=== PATIENT | female | born 1980 | race Caucasian/White ===

== ENCOUNTER 2018-01-08 20:54 | Inpatient (IN) | payer OTHER ==
[~2018-01-08 20:54] MED LIST: ISOVUE-370 76%-LOCM 1 ML ONE
[2018-01-08] MEDS ORDERED: Ketorolac Tromethamine 30 MG/ML VIAL ONE (21:07)
[2018-01-08 21:14] LABS: #Basophils 0.1 thou/uL (0.0-0.2); #Eosinphils 0.2 thou/uL (0.0-0.7); #Lymphocytes 5.5 thou/uL (1.20-3.40); #Monocytes 0.7 thou/uL (0.11-0.59); #Neutrophils 8.4 thou/uL (1.40-6.50); %Basophils 0.9 % (0.0-1.0); %Eosinophils 1.2 % (0.0-10.0); %Lymphocytes 37.1 % (21.0-51.0); %Monocytes 4.4 % (0.0-10.0); %Neutrophils 56.4 % (42.0-75.0); Hemoglobin 14.2 g/dL (12.0-16.0); Mean Corpuscular HGB CONC 34.5 g/dL (32.0-36.0); Mean Corpuscular Hemoglobin 29.4 pg (27.0-31.0); Mean Corpuscular Volume 85.3 fl (81.0-99.0); Mean Platelet Volume 10.1 fL (7.4-10.4); Platelet Count 242 thou/uL (130-400); RBC Distribution Width 12.2 % (11.5-14.5); Red Blood Cell (RBC) Count 4.83 mill/uL (4.20-5.40); White Blood Cell (WBC) Count 14.9 thou/uL (4.8-10.8)
[2018-01-08 21:15] LABS: BHCG - Serum Negative (NEGATIVE); Pregs Control Background? CLEAR/WHITE (CLR/WHITE); Pregs Control Bar Appear? YES (CONTROL BAR)
[2018-01-08 21:25] LABS: ALT (SGPT) 54 U/L (8-55); AST (SGOT) 81 U/L (5-34); Albumin 3.9 g/dL (3.5-5.0); Alkaline Phosphatase 60 U/L (40-150); Anion Gap 13 mmol/L (10-20); BUN (Urea Nitrogen) 13 mg/dL (7.0-18.7); Bilirubin, Total 0.3 mg/dL (0.2-1.2); Calc. Creatinine Clearance 0 mL/min (70-130); Calcium 8.8 mg/dL (7.8-10.44); Carbon Dioxide 23 mmol/L (22-29); Chloride 107 mmol/L (98-107); Estimated GFR-MDRD 66; Globulin 2.9 g/dL (2.4-3.5); Glucose 139 mg/dL (70-105); Potassium 3.7 mmol/L (3.5-5.1); Protein, Total 6.8 g/dL (6.0-8.3); Sodium 139 mmol/L (136-145)
[2018-01-08] MEDS ORDERED: Fentanyl 100 MCG/2 ML VIAL ONE ×2 (21:29→23:35)
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
[2018-01-08] MEDS ORDERED: methylPREDNISolone Sod Succ/PF 125 MG/2 ML VIAL ONE (22:10)
[2018-01-08] MEDS ORDERED: diphenhydrAMINE 50 MG/ML VIAL ONE (22:10)
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
[2018-01-08] MEDS ORDERED: Famotidine 40 MG/4 ML VIAL SLOW IVP SCH (22:30)
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
[2018-01-09 00:35] LABS: Hemoglobin 12.7 g/dL (12.0-16.0)
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
[2018-01-09] MEDS ORDERED: Morphine 4 MG/ML VIAL SLOW IVP PRN ×2 (01:24→17:11)
[2018-01-09] MEDS ORDERED: Dextrose 5% in Water 1,000 ML IV PRN (01:24)
[2018-01-09] MEDS ORDERED: Dextrose 50% Abboject 50 ML SYRINGE SLOW IVP PRN (01:24)
[2018-01-09] MEDS ORDERED: Ondansetron HCl/PF 4 MG/2 ML Vial IVP PRN ×2 (01:24→13:10)
[2018-01-09] MEDS ORDERED: Bisacodyl 10 MG SUPP PR PRN (01:24)
[2018-01-09] MEDS ORDERED: hydrALAZINE 20 MG/ML VIAL SLOW IVP PRN (01:24)
[2018-01-09 02:01] VITALS: BMI 35.8
[2018-01-09 02:09] LABS: Hemoglobin 12.8 g/dL (12.0-16.0)
[2018-01-09] MEDS: Morphine 4 MG/ML VIAL SLOW IVP PRN ×3 (02:27→15:14)
[2018-01-09] MEDS: Sodium Chloride 0.9% 1,000 ML IV SCH ×3 (02:28→17:42)
[2018-01-09] MEDS: Acetaminophen 1,000 MG in Premix Bag 1 BAG IVPB SCH ×3 (03:11→15:13)
[2018-01-09 05:06] LABS: Bilirubin Negative (Negative); Blood, Urine Trace (Negative); Clarity CLEAR (Clear); Glucose, Urine (Dipstick) 250 mg/dL (Negative); Leukocyte Small (Negative); Nitrite Negative (Negative); Pregnancy Test - Urine (BHCG) Negative (Negative); Pregu Control Background? CLEAR/WHITE (CLR/WHITE); Pregu Control Bar Appear? YES (CONTROL BAR); Protein, Urine (Dipstick) Negative (Neg-Trace); Specific Gravity 1.038 (1.002-1.036); Specific Gravity, Urine 1.038 (1.002-1.036); pH, Urine 5.5 (5.0-9.0)
[2018-01-09 05:09] LABS: Bacteria/HPF None Seen HPF (None Seen); Hyaline Casts/LPF 0-3 HYALINE CAST LPF (0-3 Hyaline); Squamous Epithelial 0-3 HPF (0-3); WBC/HPF 21-50 HPF (0-3)
[2018-01-09 05:24] LABS: #Lymphocytes 0.6 thou/uL (1.20-3.40); #Monocytes 0.2 thou/uL (0.11-0.59); %Basophils 0.3 % (0.0-1.0); %Eosinophils 0.2 % (0.0-10.0); %Lymphocytes 5.4 % (21.0-51.0); %Monocytes 1.7 % (0.0-10.0); %Neutrophils 92.4 % (42.0-75.0); Mean Corpuscular HGB CONC 34.2 g/dL (32.0-36.0); Mean Corpuscular Hemoglobin 29.6 pg (27.0-31.0); Mean Corpuscular Volume 86.6 fl (81.0-99.0); Platelet Count 175 thou/uL (130-400); RBC Distribution Width 12.3 % (11.5-14.5); Red Blood Cell (RBC) Count 4.05 mill/uL (4.20-5.40); White Blood Cell (WBC) Count 10.8 thou/uL (4.8-10.8)
[2018-01-09 05:35] LABS: Anion Gap 11 mmol/L (10-20); BUN (Urea Nitrogen) 10 mg/dL (7.0-18.7); Calc. Creatinine Clearance 136 mL/min (70-130); Calcium 8.1 mg/dL (7.8-10.44); Carbon Dioxide 23 mmol/L (22-29); Chloride 107 mmol/L (98-107); Estimated GFR-MDRD 81; Glucose 195 mg/dL (70-105); Magnesium 1.9 mg/dL (1.6-2.6); Sodium 137 mmol/L (136-145)
[2018-01-09 05:51] LABS: Renal Epithelial None Seen HPF (0-3); Transitional Epithelial NONE SEEN HPF (0-3)
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
[2018-01-09] MEDS ORDERED: CEFAZOLIN/Water 2 GM/20 ML SYRINGE SLOW IVP SCH (07:45)
[2018-01-09] MEDS ORDERED: CEFAZOLIN/Water 2 GM/20 ML SYRINGE ONE (09:19)
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
[2018-01-09] MEDS: Senokot S 8.6-50 MG TAB PO SCH ×2 (10:12→20:46)
[2018-01-09] MEDS ORDERED: Midazolam HCl 2 mg/2 ml Vial ONE (10:12)
[2018-01-09] MEDS: Polyethylene Glycol 3350 17 GM Packet PO SCH (10:12)
[2018-01-09] MEDS: Famotidine 40 MG/4 ML VIAL SLOW IVP SCH ×2 (10:12→20:44)
[2018-01-09] MEDS ORDERED: Fentanyl 250 MCG/5 ML VIAL ONE (10:13)
[2018-01-09] MEDS ORDERED: PHENYLEPHRINE-NS 100 MCG/ML 10 ML SYRINGE ONE (12:59)
[2018-01-09] MEDS ORDERED: Lidocaine 1% PF 5 ML VIAL ONE (12:59)
[2018-01-09] MEDS ORDERED: Succinylcholine Chloride 20 MG/ML 10 ml SYRINGE FS ONE (12:59)
[2018-01-09] MEDS ORDERED: Dexamethasone 20 MG/5 ML VIAL ONE (12:59)
[2018-01-09] MEDS ORDERED: PROPOFOL 200 MG/20 ML VIAL ONE (12:59)
[2018-01-09] MEDS ORDERED: Glycopyrrolate 0.2 MG/ML 5 ML SYRINGE ONE (12:59)
[2018-01-09] MEDS ORDERED: Promethazine HCl 25 MG/ML VIAL SLOW IVP PRN (13:10)
[2018-01-09] MEDS ORDERED: Promethazine HCl 25 MG/ML VIAL IM PRN (13:10)
[2018-01-09] MEDS ORDERED: Fentanyl 100 MCG/2 ML VIAL ONE ×2 (13:15→13:53)
[2018-01-09 15:14] LABS: Hemoglobin 10.9 g/dL (12.0-16.0)
[2018-01-09] MEDS ORDERED: traMADol HCl 50 MG TAB PO PRN (17:09)
[2018-01-09] MEDS: Acetaminophen 500 MG TAB PO SCH ×2 (17:33→23:39)
[2018-01-09] MEDS: CEFAZOLIN/Water 2 GM/20 ML SYRINGE SLOW IVP SCH (17:34)
[2018-01-09] MEDS: Ketorolac Tromethamine 30 MG/ML VIAL IVP SCH ×2 (17:37→23:40)
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
[2018-01-09] MEDS: Gabapentin 300 MG CAP PO SCH (20:46)
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
[2018-01-10] MEDS: CEFAZOLIN/Water 2 GM/20 ML SYRINGE SLOW IVP SCH ×2 (01:44→11:02)
[2018-01-10] MEDS: Sodium Chloride 0.9% 1,000 ML IV SCH ×2 (03:27→13:47)
[2018-01-10] MEDS: Ketorolac Tromethamine 30 MG/ML VIAL IVP SCH ×4 (05:23→23:39)
[2018-01-10] MEDS: Acetaminophen 500 MG TAB PO SCH ×4 (05:23→23:39)
[2018-01-10 05:38] LABS: #Lymphocytes 1.1 thou/uL (1.20-3.40); #Monocytes 0.5 thou/uL (0.11-0.59); #Neutrophils 5.4 thou/uL (1.40-6.50); %Basophils 0.2 % (0.0-1.0); %Eosinophils 0.2 % (0.0-10.0); %Lymphocytes 15.9 % (21.0-51.0); %Monocytes 6.9 % (0.0-10.0); %Neutrophils 76.8 % (42.0-75.0); Hemoglobin 8.8 g/dL (12.0-16.0); Mean Corpuscular HGB CONC 33.4 g/dL (32.0-36.0); Mean Corpuscular Hemoglobin 29.2 pg (27.0-31.0); Mean Corpuscular Volume 87.6 fl (81.0-99.0); Platelet Count 156 thou/uL (130-400); RBC Distribution Width 12.4 % (11.5-14.5); Red Blood Cell (RBC) Count 2.99 mill/uL (4.20-5.40)
--- NOTE | 2018-01-10 06:48 | PRG ---
DATE OF SERVICE: 01/10/2018 I saw Cathryn Lucas in her bed this morning. Her CTSO has been applied, although it does not fit. Her chin is not in place. The device is not fitting well. She is unsure exactly how to get it on and o ff and readjust it. Thankfully, Ms. Lucas's neurological examination is quite stable. She has joint position sense, good strength and sensation all the way down to the toes. Unfortunately, the fit and positioning as well as the teaching for donning and doffing her brace were not absorbed well yesterday and the group that placed it will be called back to bedside today for re fitting, replacement and more teaching. Our office will make a followup appointment in 7-12 days for upright x-rays in her braces and as long as spinal alignment remains reasonable and the neurological function is normal then we will continue with conservative management for her thoracic fractures.
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
[2018-01-10] MEDS: Senokot S 8.6-50 MG TAB PO SCH ×2 (09:11→20:16)
[2018-01-10] MEDS: Gabapentin 300 MG CAP PO SCH ×2 (09:11→20:16)
[2018-01-10] MEDS: Polyethylene Glycol 3350 17 GM Packet PO SCH (09:11)
[2018-01-10] MEDS: Enoxaparin Sodium 30 MG/0.3 ML SYRINGE SC SCH ×2 (09:11→20:24)
[2018-01-10] MEDS: Citalopram 20 MG TAB PO SCH (09:11)
[2018-01-10] MEDS: traMADol HCl 50 MG TAB PO PRN (09:41)
[2018-01-10] MEDS: Famotidine 40 MG/4 ML VIAL SLOW IVP SCH (14:56)
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
[2018-01-10] MEDS: Famotidine 20 MG TAB PO SCH (20:16)
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
[2018-01-11 05:37] LABS: Anion Gap 9 mmol/L (10-20); BUN (Urea Nitrogen) 9 mg/dL (7.0-18.7); Calc. Creatinine Clearance 160 mL/min (70-130); Calcium 8.1 mg/dL (7.8-10.44); Carbon Dioxide 28 mmol/L (22-29); Chloride 106 mmol/L (98-107); Estimated GFR-MDRD Greater than 90; Glucose 111 mg/dL (70-105); Potassium 3.5 mmol/L (3.5-5.1); Sodium 139 mmol/L (136-145)
[2018-01-11 05:49] LABS: #Basophils 0.1 thou/uL (0.0-0.2); #Eosinphils 0.1 thou/uL (0.0-0.7); #Lymphocytes 1.7 thou/uL (1.20-3.40); #Monocytes 0.3 thou/uL (0.11-0.59); #Neutrophils 3.8 thou/uL (1.40-6.50); %Basophils 0.9 % (0.0-1.0); %Lymphocytes 28.9 % (21.0-51.0); %Monocytes 4.3 % (0.0-10.0); %Neutrophils 63.9 % (42.0-75.0); Hemoglobin 8.4 g/dL (12.0-16.0); Mean Corpuscular HGB CONC 33.9 g/dL (32.0-36.0); Mean Corpuscular Hemoglobin 29.7 pg (27.0-31.0); Mean Corpuscular Volume 87.7 fl (81.0-99.0); Mean Platelet Volume 9.5 fL (7.4-10.4); Platelet Count 142 thou/uL (130-400); RBC Distribution Width 12.4 % (11.5-14.5); Red Blood Cell (RBC) Count 2.84 mill/uL (4.20-5.40); White Blood Cell (WBC) Count 5.9 thou/uL (4.8-10.8)
[2018-01-11] MEDS: Acetaminophen 500 MG TAB PO SCH (05:57)
[2018-01-11] MEDS: Ketorolac Tromethamine 30 MG/ML VIAL IVP SCH ×4 (05:57→23:26)
[2018-01-11] MEDS: traMADol HCl 50 MG TAB PO PRN (06:29)
[2018-01-11] MEDS ORDERED: Potassium Phosphate 9 MMOL, Admixture Fee 1 EACH in Sodium Chloride 0.9% 100 ML IVPB SCH (08:00)
[2018-01-11] MEDS: Enoxaparin Sodium 30 MG/0.3 ML SYRINGE SC SCH ×2 (10:23→20:31)
[2018-01-11] MEDS: Citalopram 20 MG TAB PO SCH (10:23)
[2018-01-11] MEDS: Famotidine 20 MG TAB PO SCH ×2 (10:23→20:30)
[2018-01-11] MEDS: Gabapentin 300 MG CAP PO SCH ×2 (10:24→20:30)
[2018-01-11] MEDS: Senokot S 8.6-50 MG TAB PO SCH ×2 (10:24→20:30)
[2018-01-11] MEDS: Polyethylene Glycol 3350 17 GM Packet PO SCH (10:25)
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
[2018-01-11] MEDS: Acetaminophen 325 MG TAB PO SCH ×3 (12:04→23:26)
[2018-01-11] MEDS: traMADol HCl 50 MG TAB PO SCH ×3 (12:05→23:26)
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
[2018-01-11] MEDS: Cyclobenzaprine 10 MG TAB PO SCH ×2 (14:57→17:48)
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
[2018-01-11] MEDS: HYDROcodone/Acetaminophen 10/325 mg Tablet PO PRN (20:39)
[2018-01-12] MEDS: traMADol HCl 50 MG TAB PO SCH ×3 (05:59→17:20)
[2018-01-12] MEDS: Acetaminophen 325 MG TAB PO SCH ×3 (05:59→17:16)
[2018-01-12] MEDS: Ketorolac Tromethamine 30 MG/ML VIAL IVP SCH ×2 (05:59→14:32)
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
[2018-01-12 08:16] LABS: #Eosinphils 0.2 thou/uL (0.0-0.7); #Lymphocytes 1.3 thou/uL (1.20-3.40); #Monocytes 0.3 thou/uL (0.11-0.59); #Neutrophils 3.6 thou/uL (1.40-6.50); %Basophils 0.6 % (0.0-1.0); %Eosinophils 3.3 % (0.0-10.0); %Lymphocytes 23.8 % (21.0-51.0); %Monocytes 5.1 % (0.0-10.0); %Neutrophils 67.2 % (42.0-75.0); Hemoglobin 8.7 g/dL (12.0-16.0); Mean Corpuscular HGB CONC 34.5 g/dL (32.0-36.0); Mean Corpuscular Volume 86.9 fl (81.0-99.0); Mean Platelet Volume 8.9 fL (7.4-10.4); Platelet Count 173 thou/uL (130-400); RBC Distribution Width 12.2 % (11.5-14.5); Red Blood Cell (RBC) Count 2.91 mill/uL (4.20-5.40); White Blood Cell (WBC) Count 5.4 thou/uL (4.8-10.8)
[2018-01-12] MEDS: Polyethylene Glycol 3350 17 GM Packet PO SCH (08:24)
[2018-01-12] MEDS: Citalopram 20 MG TAB PO SCH (08:24)
[2018-01-12] MEDS: Senokot S 8.6-50 MG TAB PO SCH ×2 (08:24→21:12)
[2018-01-12] MEDS: Enoxaparin Sodium 30 MG/0.3 ML SYRINGE SC SCH ×2 (08:24→21:12)
[2018-01-12] MEDS: Ferrous Sulfate 325 MG TAB PO SCH ×2 (08:24→17:21)
[2018-01-12] MEDS: HYDROcodone/Acetaminophen 10/325 mg Tablet PO PRN ×2 (08:24→13:57)
[2018-01-12] MEDS: Gabapentin 300 MG CAP PO SCH ×3 (08:24→21:12)
[2018-01-12] MEDS: Famotidine 20 MG TAB PO SCH ×2 (08:24→21:11)
[2018-01-12] MEDS: Ascorbic Acid 500 mg Chewable Tablet PO SCH ×2 (08:24→21:11)
[2018-01-12] MEDS: guaiFENesin ER 600 MG TAB PO SCH ×2 (08:24→21:12)
[2018-01-12 08:36] LABS: Anion Gap 12 mmol/L (10-20); BUN (Urea Nitrogen) 10 mg/dL (7.0-18.7); Calc. Creatinine Clearance 162 mL/min (70-130); Calcium 8.5 mg/dL (7.8-10.44); Carbon Dioxide 26 mmol/L (22-29); Chloride 103 mmol/L (98-107); Estimated GFR-MDRD Greater than 90; Glucose 109 mg/dL (70-105); Phosphorus 3.5 mg/dL (2.3-4.7); Potassium 3.7 mmol/L (3.5-5.1); Sodium 137 mmol/L (136-145)
[2018-01-12] MEDS: Ibuprofen 800 MG TAB PO SCH ×2 (13:56→21:12)
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
[2018-01-12] MEDS: HYDROcodone/Acetaminophen 10/325 mg Tablet PO SCH ×2 (17:19→21:12)
[2018-01-12] MEDS: Cyclobenzaprine 10 MG TAB PO PRN (21:12)
[2018-01-13] MEDS: Acetaminophen 325 MG TAB PO SCH ×5 (00:13→23:47)
[2018-01-13] MEDS: traMADol HCl 50 MG TAB PO SCH ×5 (00:14→23:50)
[2018-01-13] MEDS: HYDROcodone/Acetaminophen 10/325 mg Tablet PO SCH ×6 (00:37→20:36)
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
[2018-01-13] MEDS: Ibuprofen 800 MG TAB PO SCH ×3 (05:52→20:36)
[2018-01-13] MEDS: Citalopram 20 MG TAB PO SCH (08:51)
[2018-01-13] MEDS: Ferrous Sulfate 325 MG TAB PO SCH ×2 (08:52→17:07)
[2018-01-13] MEDS: Gabapentin 300 MG CAP PO SCH ×3 (08:52→20:35)
[2018-01-13] MEDS: Ascorbic Acid 500 mg Chewable Tablet PO SCH ×2 (08:52→20:36)
[2018-01-13] MEDS: guaiFENesin ER 600 MG TAB PO SCH ×2 (08:52→20:36)
[2018-01-13] MEDS: Enoxaparin Sodium 30 MG/0.3 ML SYRINGE SC SCH ×2 (08:53→20:36)
[2018-01-13] MEDS: Senokot S 8.6-50 MG TAB PO SCH ×2 (08:53→20:36)
[2018-01-13] MEDS: Famotidine 20 MG TAB PO SCH ×2 (08:53→20:35)
[2018-01-13] MEDS: Polyethylene Glycol 3350 17 GM Packet PO SCH (09:06)
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
[2018-01-13] MEDS: HYDROcodone/Acetaminophen 10/325 mg Tablet PO PRN (14:31)
[2018-01-14] MEDS: HYDROcodone/Acetaminophen 10/325 mg Tablet PO SCH ×6 (00:44→21:50)
[2018-01-14] MEDS: Ibuprofen 800 MG TAB PO SCH ×3 (05:29→21:51)
[2018-01-14] MEDS: Acetaminophen 325 MG TAB PO SCH ×3 (05:31→17:28)
[2018-01-14] MEDS: traMADol HCl 50 MG TAB PO SCH ×3 (05:31→17:34)
[2018-01-14] MEDS: Citalopram 20 MG TAB PO SCH (08:31)
[2018-01-14] MEDS: Ascorbic Acid 500 mg Chewable Tablet PO SCH ×2 (08:31→21:52)
[2018-01-14] MEDS: Famotidine 20 MG TAB PO SCH ×2 (08:31→21:51)
[2018-01-14] MEDS: guaiFENesin ER 600 MG TAB PO SCH ×2 (08:31→21:51)
[2018-01-14] MEDS: Enoxaparin Sodium 30 MG/0.3 ML SYRINGE SC SCH ×2 (08:31→21:51)
[2018-01-14] MEDS: Gabapentin 300 MG CAP PO SCH ×3 (08:31→21:51)
[2018-01-14] MEDS: Senokot S 8.6-50 MG TAB PO SCH ×2 (08:31→21:51)
[2018-01-14] MEDS: Ferrous Sulfate 325 MG TAB PO SCH ×2 (08:31→17:28)
[2018-01-14] MEDS: Polyethylene Glycol 3350 17 GM Packet PO SCH (08:32)
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
--- NOTE | 2018-01-14 13:21 | RAD ---
LEFT WRIST RADIOGRAPHS 2 VIEWS: DATE: 01/14/18. PROVIDED CLINICAL HISTORY: Distal radial fracture. FINDINGS: Comparison is made with the study dated 01/08/18. Comminuted intraarticular distal radial fracture is redemonstrated. Overlying splenic material is now in place. No additional fracture is evident. IMPRESSION: As above. POS: [facility]
[2018-01-14] MEDS: Cyclobenzaprine 10 MG TAB PO PRN (21:52)
[2018-01-15] MEDS: Acetaminophen 325 MG TAB PO SCH ×2 (00:03→05:49)
[2018-01-15] MEDS: traMADol HCl 50 MG TAB PO SCH ×2 (00:05→08:02)
[2018-01-15] MEDS: HYDROcodone/Acetaminophen 10/325 mg Tablet PO PRN ×2 (01:57→14:12)
[2018-01-15] MEDS: HYDROcodone/Acetaminophen 10/325 mg Tablet PO SCH ×4 (05:49→23:59)
[2018-01-15] MEDS: Ibuprofen 800 MG TAB PO SCH ×3 (07:43→21:52)
[2018-01-15] MEDS ORDERED: HYDROcodone/Acetaminophen 10/325 mg Tablet PO SCH ×2 (09:00→16:30)
[2018-01-15] MEDS: Enoxaparin Sodium 30 MG/0.3 ML SYRINGE SC SCH ×2 (09:25→20:06)
[2018-01-15] MEDS: Gabapentin 300 MG CAP PO SCH ×3 (09:25→20:07)
[2018-01-15] MEDS: Famotidine 20 MG TAB PO SCH ×2 (09:25→20:06)
[2018-01-15] MEDS: Ferrous Sulfate 325 MG TAB PO SCH ×2 (09:25→16:55)
[2018-01-15] MEDS: Ascorbic Acid 500 mg Chewable Tablet PO SCH ×2 (09:25→20:06)
[2018-01-15] MEDS: Citalopram 20 MG TAB PO SCH (09:25)
[2018-01-15] MEDS: guaiFENesin ER 600 MG TAB PO SCH ×2 (09:25→20:07)
[2018-01-15] MEDS: Polyethylene Glycol 3350 17 GM Packet PO SCH (09:45)
[2018-01-15] MEDS: Senokot S 8.6-50 MG TAB PO SCH ×2 (09:45→20:08)
[2018-01-15] MEDS ORDERED: traMADol HCl 50 MG TAB PO SCH (12:00)
[2018-01-15] MEDS ORDERED: Acetaminophen 325 MG TAB PO SCH (12:00)
[2018-01-16] MEDS: HYDROcodone/Acetaminophen 10/325 mg Tablet PO SCH ×5 (04:01→21:08)
[2018-01-16] MEDS: Ibuprofen 800 MG TAB PO SCH ×3 (05:35→21:07)
[2018-01-16] MEDS: Gabapentin 300 MG CAP PO SCH ×3 (09:18→21:07)
[2018-01-16] MEDS: Ferrous Sulfate 325 MG TAB PO SCH ×2 (09:18→17:25)
[2018-01-16] MEDS: guaiFENesin ER 600 MG TAB PO SCH ×2 (09:18→21:07)
[2018-01-16] MEDS: Ascorbic Acid 500 mg Chewable Tablet PO SCH ×2 (09:18→21:07)
[2018-01-16] MEDS: Citalopram 20 MG TAB PO SCH (09:18)
[2018-01-16] MEDS: Famotidine 20 MG TAB PO SCH ×2 (09:18→21:07)
[2018-01-16] MEDS: Enoxaparin Sodium 30 MG/0.3 ML SYRINGE SC SCH ×2 (09:19→21:07)
[2018-01-16] MEDS: Polyethylene Glycol 3350 17 GM Packet PO SCH (11:23)
[2018-01-16] MEDS: Senokot S 8.6-50 MG TAB PO SCH ×2 (11:23→21:08)
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
[2018-01-16] MEDS: HYDROcodone/Acetaminophen 10/325 mg Tablet PO PRN (14:20)
[2018-01-16] MEDS: Cyclobenzaprine 10 MG TAB PO PRN (17:27)
[2018-01-17] MEDS: HYDROcodone/Acetaminophen 10/325 mg Tablet PO SCH ×5 (01:05→17:20)
[2018-01-17] MEDS: Cyclobenzaprine 10 MG TAB PO PRN (02:45)
[2018-01-17] MEDS: Ibuprofen 800 MG TAB PO SCH ×2 (05:07→13:35)
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
[2018-01-17] MEDS: Polyethylene Glycol 3350 17 GM Packet PO SCH (09:32)
[2018-01-17] MEDS: Famotidine 20 MG TAB PO SCH (09:33)
[2018-01-17] MEDS: Gabapentin 300 MG CAP PO SCH ×2 (09:34→17:19)
[2018-01-17] MEDS: Ferrous Sulfate 325 MG TAB PO SCH ×2 (09:34→17:19)
[2018-01-17] MEDS: Senokot S 8.6-50 MG TAB PO SCH (09:34)
[2018-01-17] MEDS: guaiFENesin ER 600 MG TAB PO SCH (09:35)
[2018-01-17] MEDS: Citalopram 20 MG TAB PO SCH (09:36)
[2018-01-17] MEDS: Ascorbic Acid 500 mg Chewable Tablet PO SCH (09:37)
[2018-01-17] MEDS: Enoxaparin Sodium 30 MG/0.3 ML SYRINGE SC SCH (09:37)
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
[2018-01-17 15:12] VITALS: BP 128/62; TEMP 97.7
[2018-01-17] MEDS: HYDROcodone/Acetaminophen 10/325 mg Tablet PO PRN (18:37)
== END 2018-01-17 19:32 | DRG 481 ==
LOC: ERS 20:54 → SURG A 01-09 00:13
PROVIDERS: ADMIT Specialist; ATTEND Specialist
PROC: 0QS706Z Reposition Left Upper Femur with Intramedullary Internal Fixation Device, Open Approach (ICD-10-PCS; principal; 2018-01-11)
DX: S72.142A Displaced intertrochanteric fracture of left femur, initial encounter for closed fracture (principal); S22.43XA Multiple fractures of ribs, bilateral, initial encounter for closed fracture; S22.029A Unspecified fracture of second thoracic vertebra, initial encounter for closed fracture; S22.059A Unspecified fracture of T5-T6 vertebra, initial encounter for closed fracture; S22.089A Unspecified fracture of T11-T12 vertebra, initial encounter for closed fracture; S22.039A Unspecified fracture of third thoracic vertebra, initial encounter for closed fracture; S22.049A Unspecified fracture of fourth thoracic vertebra, initial encounter for closed fracture; S52.572A Other intraarticular fracture of lower end of left radius, initial encounter for closed fracture; S42.022A Displaced fracture of shaft of left clavicle, initial encounter for closed fracture; G89.11 Acute pain due to trauma; R33.9 Retention of urine, unspecified; V28.1XXA Motorcycle passenger injured in noncollision transport accident in nontraffic accident, initial encounter; Z88.5 Allergy status to narcotic agent; Z88.8 Allergy status to other drugs, medicaments and biological substances
CPT/HCPCS: 29125; 36415; 51702; 70450; 71045; 71275; 72040; 72072; 72125; 72170; 74176; 76001; 80048; 80053; 81003; 81015; 81025; 83735; 84100; 84703; 85014; 85018; 85025; 86850; 86900; 86901; 93005; 96361; 96374; 96375; 96376; C1713; C1769; G0390; G8978-GP-CN; G8979-GP-CK; G8987-GO-CM; G8988-GO-CK; J0131; J1100; J1200; J1650; J1885; J2001; J2250; J2270; J2704; J2930; J3010; J7050; L0200; L0639

== ENCOUNTER 2018-02-14 10:39 | Outpatient (CLI) | payer OTHER ==
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
== END 2018-02-14 10:40 | disposition home or self-care (01) ==
LOC: TBSIIMAG 10:39
PROVIDERS: ATTEND Neurological Surgery
DX: S22.059A Unspecified fracture of T5-T6 vertebra, initial encounter for closed fracture (principal); M40.204 Unspecified kyphosis, thoracic region
CPT/HCPCS: 72072

== ENCOUNTER 2018-03-14 12:41 | Outpatient (CLI) | payer OTHER ==
--- NOTE | 2018-03-14 14:52 | RAD ---
FRONTAL AND LATERAL IMAGING OF THORACIC SPINE: Date: 03/14/18 COMPARISON: 02/14/18. HISTORY: Evaluate thoracic spine fracture. FINDINGS: Prior imaging has demonstrated a compression fracture of the T5 vertebral body. On today's exam, the anterior wedge compression fracture of the T5 vertebral body is again demonstrated. Secondary to posi tioning, assessment is somewhat limited. The degree of vertebral body height loss is estimated in the 40% range. There is no anterolisthesis or retrolisthesis. There is mild superior end plate irregularity at T12, unchanged when compared to prior imaging. No ne w fracture is apparent. There is a distracted mid shaft left clavicle fracture. IMPRESSION: Anterior wedge compression fracture of T5. No interval change. POS: [facility]
== END 2018-03-14 12:42 | disposition home or self-care (01) ==
LOC: TBSIIMAG 12:41
PROVIDERS: ATTEND Neurological Surgery
DX: S22.008A Other fracture of unspecified thoracic vertebra, initial encounter for closed fracture (principal); S22.050A Wedge compression fracture of T5-T6 vertebra, initial encounter for closed fracture
CPT/HCPCS: 72072

== ENCOUNTER 2018-05-18 16:25 | Outpatient (CLI) | payer OTHER, BC | END 2018-05-18 16:26 | disposition home or self-care (01) | LOC: BICCT 16:25 | PROVIDERS: ATTEND Physician Assistant Surgical | DX: S72.145K Nondisplaced intertrochanteric fracture of left femur, subsequent encounter for closed fracture with nonunion (principal) ==

== ENCOUNTER 2018-06-07 11:15 | Inpatient (IN) | payer BC, OTHER ==
[2018-06-06 11:59] VITALS: BMI 32.9
[~2018-06-07 11:15] MED LIST changes: +Bupivacaine HCl 0.5%/Epinephrine 1:200,000/PF 30 ml Vial ONE; +Dexamethasone 20 MG/5 ML VIAL ONE; -ISOVUE-370 76%-LOCM 1 ML ONE; +Ketorolac Tromethamine 30 MG/ML VIAL ONE; +Ondansetron HCl/PF 4 MG/2 ML Vial ONE; +PROPOFOL 200 MG/20 ML VIAL ONE; +ePHEDrine/0.9% NaCl/PF SYRINGE 50 mg/10 ml ONE
[2018-06-07] MEDS ORDERED: Fentanyl 100 MCG/2 ML VIAL ONE ×5 (12:36→16:06)
[2018-06-07] MEDS ORDERED: Dexamethasone 4 mg/ml Vial ONE (12:36)
[2018-06-07] MEDS ORDERED: Midazolam HCl 2 mg/2 ml Vial ONE (12:36)
[2018-06-07] MEDS ORDERED: Lidocaine 1% (PF) 30 ML VIAL ONE (12:36)
[2018-06-07] MEDS ORDERED: CEFAZOLIN/Water 2 GM/20 ML SYRINGE ONE (12:48)
[2018-06-07] MEDS ORDERED: Promethazine HCl 25 MG/ML VIAL IM PRN (14:42)
[2018-06-07] MEDS ORDERED: Promethazine HCl 25 MG/ML VIAL SLOW IVP PRN (14:42)
[2018-06-07] MEDS ORDERED: Ketorolac Tromethamine 30 MG/ML VIAL IVP PRN (14:42)
[2018-06-07] MEDS ORDERED: Ondansetron HCl/PF 4 MG/2 ML Vial IVP PRN (14:42)
[2018-06-07] MEDS ORDERED: HYDROmorphone 2 MG/ML VIAL SLOW IVP PRN (14:42)
[2018-06-07] MEDS ORDERED: HYDROmorphone 2 MG/ML VIAL ONE ×2 (14:47→16:07)
[2018-06-07] MEDS ORDERED: HYDROcodone/Acetaminophen 10/325 mg Tablet PO PRN (14:50)
[2018-06-07] MEDS ORDERED: Ondansetron HCl/PF 4 MG/2 ML Vial IV PRN (14:50)
[2018-06-07] MEDS ORDERED: Communication Order-Pharmacy FS PRN (15:00)
--- NOTE | 2018-06-07 15:22 | RAD ---
LEFT FEMUR 2 VIEWS: Date: 06/07/18 HISTORY: Intraoperative film. FINDINGS: The film of the femur only includes the knee region. It shows the distal end of an intramedullary osiris in the distal femoral shaft. IMPRESSION: Distal end of intramedullary osiris is seen in the distal femoral shaft. POS: [facility]
[2018-06-07] MEDS ORDERED: TETANUS AND DIPHTHERIA TOX/PF 0.5 ML DISP.SYRIN IM SCH (16:00)
[2018-06-07] MEDS: HYDROcodone/Acetaminophen 10/325 mg Tablet PO PRN ×2 (18:55→23:03)
[2018-06-07] MEDS: CEFAZOLIN/Water 2 GM/20 ML SYRINGE SLOW IVP SCH (21:18)
[2018-06-07] MEDS: traMADol HCl 50 MG TAB PO PRN (21:18)
[2018-06-07] MEDS: Citalopram 20 MG TAB PO SCH (21:18)
[2018-06-07] MEDS: Aspirin 81 mg Enteric Coated Tablet PO SCH (21:18)
[2018-06-08] MEDS ORDERED: Calcium Carbonate 500 MG ChewTAB PO PRN (02:04)
[2018-06-08] MEDS: CEFAZOLIN/Water 2 GM/20 ML SYRINGE SLOW IVP SCH ×2 (05:21→15:07)
[2018-06-08] MEDS: HYDROcodone/Acetaminophen 10/325 mg Tablet PO PRN ×3 (05:24→20:30)
[2018-06-08 05:35] LABS: #Lymphocytes 0.9 thou/uL (1.20-3.40); #Monocytes 0.5 thou/uL (0.11-0.59); #Neutrophils 10.9 thou/uL (1.40-6.50); %Basophils 0.1 % (0.0-1.0); %Lymphocytes 7.7 % (21.0-51.0); %Monocytes 3.7 % (0.0-10.0); %Neutrophils 88.5 % (42.0-75.0); Hemoglobin 11.7 g/dL (12.0-16.0); Mean Corpuscular HGB CONC 33.3 g/dL (32.0-36.0); Mean Corpuscular Hemoglobin 28.8 pg (27.0-31.0); Mean Corpuscular Volume 86.3 fL (78.0-98.0); Mean Platelet Volume 10.6 fL (7.4-10.4); Platelet Count 216 thou/uL (130-400); RBC Distribution Width 13.7 % (11.5-14.5); Red Blood Cell (RBC) Count 4.07 mill/uL (4.20-5.40); White Blood Cell (WBC) Count 12.3 thou/uL (4.8-10.8)
[2018-06-08] MEDS: Aspirin 81 mg Enteric Coated Tablet PO SCH ×2 (08:34→20:30)
[2018-06-08] MEDS ORDERED: diphenhydrAMINE 25 MG CAP PO PRN (09:53)
[2018-06-08 16:15] VITALS: TEMP 98.2
[2018-06-08] MEDS: Citalopram 20 MG TAB PO SCH (20:30)
[2018-06-08] MEDS: traMADol HCl 50 MG TAB PO PRN (22:43)
[2018-06-09] MEDS: HYDROcodone/Acetaminophen 10/325 mg Tablet PO PRN ×2 (01:34→08:58)
[2018-06-09] MEDS: Aspirin 81 mg Enteric Coated Tablet PO SCH (08:58)
[2018-06-09 11:32] VITALS: BP 92/57
--- NOTE | 2018-06-10 08:27 | OP ---
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 SURGICAL PROCEDURE: 1. Iliac crest bone graft harvest from left anterior crest. 2. Bone graft to left intertrochanteric/subtrochanteric femur nonunion. 3. Dynamization of left femoral TFN nail. ANESTHESIA: General. SURGEON: Basilio Duncan M.D. HEALTH THERAPIST: Ron Hernandez PA-C BLOOD LOSS: 350 mL. IMPLANTS: Infuse bone morphogenic protein. COMPLICATIONS: None. DRAINS: None. SPECIMEN: Explanted screw discarded. INDICATIONS: The patient is a 37-year-old lady, status post high-energy injury to left proximal femu r, sustaining a very comminuted subtrochanteric/intertrochanteric femur fracture. This was treated w ith a TFN device; however, patient is having some increasing pain in the leg. Workup has included fo llowup x-rays as well as more recently a CT scan of the proximal femur that does show what appears to be a nonunion at the base of the femoral neck extending into the intertrochanteric region of the fem ur. The hardware all appears well fixed with no evidence of hardware failure or loosening. As such, we are now going to proceed with a bone graft procedure to try and encourage osteosynthesis. Inform ed consent has been obtained. I believe all questions have been answered. DESCRIPTION OF PROCEDURE: The patient was brought to the operating room and a timeout performed, fol lowed by induction of general anesthesia. The patient was positioned supine on the Elton table wit h a bump under the left pelvis to allow for good access of the anterior iliac crest, yet still allowi ng for access to the anterior lateral femur. Next, a sterile prep and drape was performed of the lef t lower extremity including the left hemipelvis. First, an incision was made along the subcutaneous border of the anterior iliac crest. After skin was sharply incised, dissection was carried down blun tly exposing the crest. Using minimal subperiosteal dissection, the fascia over the crest was incise d and then reflected along the inner table of the crest as well as on the outer table. At this point , an oscillating saw was used to make a window at the top of the crest and this window was opened, an d then using a combination of gouges and curettes, the cancellous bone from the anterior crest was maharaj rvested. Once fully harvested, drill hole was placed through the bony window that had been developed and then 0 Vicryl was used to reapproximate the bone after thorough irrigation. Once the bone had b een closed, the fascial layer was reapproximated with 0 Vicryl followed by 2-0 Vicryl and atilio for the skin. Next, attention was placed at the anterior proximal femur. An anterolateral skin incisio n was made basically following a line from the anterior-superior iliac spine down along the femur. T he upper portion of this incision was not utilized; however, the midportion centered over the intertr ochanteric region was developed and then a standard Sanchez-Garcia approach to the anterior proximal femur was exploited. Once the anterior femur was visualized, an elevator was used to further reveal the fracture site as well as eventually the nonunion, which was most visible along the calcar. A cur ette was used to remove some fibrinous exudate from this region and scar tissue. Once some cancellou s bone was fully visualized as well as cortical bone, the bone graft was laid down. This was done wi th laying of the cancellous iliac crest graft on a strip of Infuse bone morphogenic protein matrix. This was then rolled into a tube and then this tube was inserted, one at the calcar up along the base of the neck and a second one anteriorly at the intertrochanteric region and a third one more distall y just at the level of the subtrochanteric extension. It should be noted that before laying down of the Infuse bone graft combination, all bone surfaces were feathered using an osteotome to increase alvares rface area and hopefully promote union. Once laid down, soft tissue was covered over the graft harve st site and then stabilized with 0 Vicryl followed by 2-0 Vicryl for the subcutaneous tissue and stap le for the skin. A Xeroform gauze and tape dressing was applied to both proximal sites after a third incision was made distally with removal of the distal cross-lock screw to allow for dynamization of the femoral nail, this wound, which was closed with atilio and then covered with Xeroform gauze and tape. The patient was then transferred to recovery room in stable condition. There were no complica tions and she tolerated the procedure well.
== END 2018-06-09 13:15 | disposition home or self-care (01) | DRG 482 ==
LOC: SURG A 11:15 → EDSTATUS 12:57 → SURG B 15:48
PROVIDERS: ADMIT Orthopaedic Surgery; ATTEND Orthopaedic Surgery
PROC: 0QU707Z Supplement Left Upper Femur with Autologous Tissue Substitute, Open Approach (ICD-10-PCS; principal; 2018-06-07)
PROC: 0QB30ZZ Excision of Left Pelvic Bone, Open Approach (ICD-10-PCS; 2018-06-07)
DX: S72.002G Fracture of unspecified part of neck of left femur, subsequent encounter for closed fracture with delayed healing (principal); J45.909 Unspecified asthma, uncomplicated; E78.5 Hyperlipidemia, unspecified; F41.9 Anxiety disorder, unspecified; E66.9 Obesity, unspecified; Z68.32 Body mass index [BMI] 32.0-32.9, adult
CPT/HCPCS: 36415; 76001; 85025; J0670; J1100; J1170; J1885; J2001; J2250; J2405; J2704; J3010

== ENCOUNTER 2019-01-31 06:00 | Inpatient (IN) | payer BC ==
[2019-01-31 07:25] VITALS: BMI 33.8
[2019-01-31] MEDS ORDERED: NS w/ Oxytocin 10 units 500 ML ONE (07:59)
[2019-01-31] MEDS ORDERED: HYDROcodone/Acetaminophen 5/325 mg Tablet PO PRN (08:21)
[2019-01-31] MEDS ORDERED: Acetaminophen 500 MG TAB PO PRN (08:21)
[2019-01-31] MEDS ORDERED: Butorphanol Tartrate 1 MG/ML VIAL SLOW IVP PRN (08:21)
[2019-01-31] MEDS ORDERED: Promethazine HCl 25 MG/ML VIAL IM PRN ×2 (08:21→10:50)
[2019-01-31] MEDS ORDERED: Misoprostol 200 MCG TAB PR PRN (08:21)
[2019-01-31] MEDS ORDERED: Lidocaine 1% (PF) 30 ML VIAL SC PRN (08:21)
[2019-01-31] MEDS ORDERED: Ibuprofen 800 MG TAB PO PRN (08:21)
[2019-01-31] MEDS ORDERED: Carboprost 250 MCG/ML AMP IM PRN (08:21)
[2019-01-31] MEDS ORDERED: Ondansetron PF 4 MG/2 ML Vial IVP PRN ×2 (08:21→10:50)
[2019-01-31] MEDS ORDERED: NS / Oxytocin 40 units/1000ml 1,000 ML IV PRN (08:21)
[2019-01-31] MEDS ORDERED: Methylergonovine 0.2 MG/ML VIAL IM PRN (08:21)
[2019-01-31 08:23] LABS: Syphilis Antibody Nonreactive (Nonreactive); Syphilis Antibody Index 0.14 S/CO (<1.00 Non-Reactive)
[2019-01-31 08:28] LABS: Hemoglobin 12.7 g/dL (12.0-16.0); Mean Corpuscular HGB CONC 32.4 g/dL (32.0-36.0); Mean Corpuscular Hemoglobin 27.8 pg (27.0-31.0); Mean Corpuscular Volume 85.5 fL (78.0-98.0); Mean Platelet Volume 13.4 fL (7.4-10.4); Platelet Count 95 thou/uL (130-400); Red Blood Cell (RBC) Count 4.58 mill/uL (4.20-5.40); White Blood Cell (WBC) Count 5.5 thou/uL (4.8-10.8)
[2019-01-31] MEDS ORDERED: NS w/ Oxytocin 10 units 500 ML IV SCH (08:30)
[2019-01-31] MEDS ORDERED: Lactated Ringer's 1,000 ML IV SCH (08:30)
[2019-01-31 09:34] LABS: HBSAg Index 0.35 S/CO (0-0.99); Hep B Surf Ag Non-Reactive S/CO (NonReactive)
[2019-01-31] MEDS ORDERED: Fentanyl 4 mcg/Bup 0.1% Cadd 100 ML ONE (10:20)
[2019-01-31] MEDS ORDERED: Lactated Ringer's 500 ML IV PRN (10:50)
[2019-01-31] MEDS ORDERED: Naloxone HCl 0.4 mg/ml Vial IVP PRN ×2 (10:50)
[2019-01-31] MEDS ORDERED: ePHEDrine/0.9% NaCl/PF SYRINGE 50 mg/10 ml SLOW IVP PRN (10:50)
[2019-01-31] MEDS ORDERED: diphenhydrAMINE 50 MG/ML VIAL IVP PRN (10:50)
[2019-01-31] MEDS ORDERED: Acetaminophen 325 MG TAB PO PRN (10:50)
[2019-01-31] MEDS ORDERED: Eucerin (Mineral Oil/Petrolatum,White) 30 gm Jar TOP PRN (10:50)
[2019-01-31] MEDS ORDERED: Communication Order-Pharmacy FS SCH (11:00)
[2019-01-31] MEDS ORDERED: Fentanyl 4 mcg/Bupivacaine 0.1% Cassette 100 ML EPIDURAL SCH (11:00)
[2019-01-31 12:09] LABS: Bilirubin Negative (Negative); Blood, Urine Negative (Negative); Clarity CLEAR (Clear); Glucose, Urine (Dipstick) Negative (Negative); Leukocyte Negative (Negative); Nitrite Negative (Negative); Protein, Urine (Dipstick) 100 mg/dL (Neg-Trace); Specific Gravity, Urine 1.019 (1.002-1.036)
[2019-01-31 12:11] LABS: Bacteria/HPF None Seen HPF (None Seen); Hyaline Casts/LPF 4-6 HYALINE CAST LPF (0-3 Hyaline); Pathc Cast-AUWi Flag 1.22 (0-2.49); RBC/HPF 0-3 HPF (0-3); Squamous Epithelial 0-3 HPF (0-3); WBC/HPF 0-3 HPF (0-3)
[2019-01-31 12:33] LABS: ALT (SGPT) 11 U/L (8-55); AST (SGOT) 12 U/L (5-34); Albumin 3.1 g/dL (3.5-5.0); Alkaline Phosphatase 80 U/L (40-150); Anion Gap 12 mmol/L (10-20); BUN (Urea Nitrogen) 11 mg/dL (7.0-18.7); Bilirubin, Total 0.3 mg/dL (0.2-1.2); Calc. Creatinine Clearance 128 mL/min (70-130); Calcium 9.3 mg/dL (7.8-10.44); Carbon Dioxide 23 mmol/L (22-29); Chloride 106 mmol/L (98-107); Estimated GFR-MDRD 82; Globulin 2.7 g/dL (2.4-3.5); Glucose 69 mg/dL (70-105); Potassium 4.2 mmol/L (3.5-5.1); Protein, Total 5.8 g/dL (6.0-8.3); Sodium 137 mmol/L (136-145)
--- NOTE | 2019-01-31 13:09 | PDOC.EVN ---
Event Note - Event Note Event Note: AROM with clear fluid. no complications. Vertex. SVE 3-4/70/-2. Continue pitocin. FWB category I. Having some mild range elevated BP - continue to monitor for now. 1+ protein in the urine, CMP normal. Low platelets but that has been going on for several weeks now. The BP is a new development - BP was normal in office on Tuesday. Will follow closely, if persistent severe range BP then will start Mag.
[2019-01-31] MEDS ORDERED: Milk Of Magnesia 30 ML UDCUP PO PRN (21:04)
[2019-01-31] MEDS ORDERED: Preparation H Ointment 28 GM TUBE PR PRN (21:04)
[2019-01-31] MEDS ORDERED: Bisacodyl 10 MG SUPP PR PRN (21:04)
[2019-01-31] MEDS ORDERED: Lanolin Ointment 7 GM TUBE TOP PRN (21:04)
[2019-01-31] MEDS ORDERED: NS / Oxytocin 40 units/1000ml 1,000 ML IV SCH (21:04)
[2019-01-31] MEDS ORDERED: Magnesium Sulfate 20 gm/500 ml 20 GM/500 ML BAG ONE (21:41)
[2019-01-31] MEDS: HYDROcodone/Acetaminophen 5/325 mg Tablet PO PRN (21:50)
[2019-01-31] MEDS ORDERED: Magnesium Sulfate 20 gm/500 ml 20 GM/500 ML BAG IVPB PRN (21:56)
[2019-01-31] MEDS ORDERED: Calcium Gluc 4.6 MEQ/10 ML (100 MG/ML) IV PRN (21:56)
[2019-01-31] MEDS ORDERED: Magnesium Sulfate 20 gm/500 ml 4 GM/100 ML BAG IVPB SCH (22:00)
[2019-01-31] MEDS: hydrALAZINE 20 MG/ML VIAL SLOW IVP PRN (22:45)
--- NOTE | 2019-01-31 23:30 | DN ---
DATE OF PROCEDURE: 01/31/2019 DATE OF DELIVERY: 01/31/2019. PREOPERATIVE DIAGNOSES: Term intrauterine with gestational diabetes and thrombocytopenia in . POSTOPERATIVE DIAGNOSES: Term intrauterine with gestational diabetes and thrombocytopenia in ,as well as elevated blood pressure in the mild range. ANESTHESIA: Epidural. QUANTITATIVE BLOOD LOSS: 50 mL. BRIEF DELIVERY SUMMARY: This is a 38-year-old G3, now P3, who presented for induction of labor secondary to gestational diabetes at term. She received Pitocin this morning and progressed well. She underwent artificial rupture of membranes around 1 p.m. with clear fluid. She progressed quickly after that to complete and pushing. She delivered a live male infant head away. Mouth and nares were bulb suctioned at the perineum. There was no nuchal cord. Shoulders and body easily followed and the infant was placed on mother's abdomen. Infant's Apgars were 8 at one minute and 9 at five minutes. Cord blood was collected and sent for analysis. Placenta delivered spontaneously and intact with a 3-vessel umbilical cord. Uterine fundus was firm following evacuation of the placenta. Total quantitative blood loss was 50 mL. There were no lacerations. Mom and baby were left with the nurse in excellent condition. She is planning to breastfeed. Job ID: [id number]
[2019-02-01] MEDS: hydrALAZINE 20 MG/ML VIAL SLOW IVP PRN (01:50)
[2019-02-01] MEDS: Ibuprofen 800 MG TAB PO SCH ×3 (06:20→22:00)
[2019-02-01] MEDS: Ferrous Sulfate 325 MG TAB PO SCH ×2 (08:19→16:49)
[2019-02-01] MEDS: HYDROcodone/Acetaminophen 5/325 mg Tablet PO PRN (08:20)
[2019-02-01] MEDS: Docusate Calcium (SURFAK) 240 MG CAP PO SCH (08:20)
[2019-02-01 09:07] LABS: #Lymphocytes 1.4 thou/uL (1.20-3.40); #Monocytes 0.4 thou/uL (0.11-0.59); #Neutrophils 7.3 thou/uL (1.40-6.50); %Basophils 0.4 % (0.0-1.0); %Eosinophils 0.3 % (0.0-10.0); %Lymphocytes 15.2 % (21.0-51.0); %Monocytes 3.9 % (0.0-10.0); %Neutrophils 80.1 % (42.0-75.0); Mean Corpuscular HGB CONC 34.1 g/dL (32.0-36.0); Mean Corpuscular Hemoglobin 29.1 pg (27.0-31.0); Mean Corpuscular Volume 85.2 fL (78.0-98.0); Mean Platelet Volume 13.2 fL (7.4-10.4); Platelet Count 88 thou/uL (130-400); RBC Distribution Width 14.2 % (11.5-14.5); Red Blood Cell (RBC) Count 4.83 mill/uL (4.20-5.40); White Blood Cell (WBC) Count 9.1 thou/uL (4.8-10.8)
--- NOTE | 2019-02-01 22:19 | PDOC.PP ---
Post Progress Note Post Day #: 1 Subjective: On magnesium overnight, BP in severe range after delivery, got hydralazine as well. BP better this AM. Having some MONTERROSO - not positional. PO intake tolerated: yes Flatus: yes Ambulation: yes Weight Weight 185 lb - Physical Examination General: NAD Cardiovascular: no m/r/g, RRR Respiratory: clear to auscultation bilaterally, non-labored breathing Abdominal: + bowel sounds, lochia, no distention, appropriately TTP Result Diagrams: 02/01/19 08:27 01/31/19 12:05 Additional Labs: Post Labs Blood Type O POSITIVE 01/31/19 07:15 Hep Bs Antigen Non-Reactive S/CO (NonReactive) 01/31/19 07:15 Rubella IgG Antibody 1.43 index (Immune >0.99) 01/31/19 07:15 (1) Vaginal delivery Code(s): O80 - ENCOUNTER FOR FULL-TERM UNCOMPLICATED DELIVERY Status: Acute (2) Pre-eclampsia in period Code(s): O14.95 - UNSPECIFIED PRE-ECLAMPSIA, COMPLICATING THE PUERPERIUM Status: Acute (3) Thrombocytopenia affecting Code(s): O99.119 - OTH DIS OF BLD/BLD-FORM ORG/IMMUN MECHNSM COMP PREG,UNSP TRI ; D69.6 - THROMBOCYTOPENIA, UNSPECIFIED Status: Acute - Assessment/Plan Continue magnesium for 24 hours May need meds for BP if remains high Home tomorrow Platelets not yet recovering - repeat CBC in AM
[2019-02-02] MEDS: Docusate Calcium (SURFAK) 240 MG CAP PO SCH ×3 (04:35→09:48)
[2019-02-02] MEDS: Ibuprofen 800 MG TAB PO SCH ×3 (06:15→14:37)
[2019-02-02 07:40] LABS: #Eosinphils 0.1 thou/uL (0.0-0.7); #Lymphocytes 1.8 thou/uL (1.20-3.40); #Monocytes 0.3 thou/uL (0.11-0.59); #Neutrophils 3.9 thou/uL (1.40-6.50); %Basophils 0.8 % (0.0-1.0); %Eosinophils 2.1 % (0.0-10.0); %Lymphocytes 29.5 % (21.0-51.0); %Monocytes 4.8 % (0.0-10.0); %Neutrophils 62.9 % (42.0-75.0); Hemoglobin 12.2 g/dL (12.0-16.0); Mean Corpuscular HGB CONC 33.6 g/dL (32.0-36.0); Mean Corpuscular Hemoglobin 29.4 pg (27.0-31.0); Mean Corpuscular Volume 87.6 fL (78.0-98.0); Mean Platelet Volume 12.2 fL (7.4-10.4); Platelet Count 99 thou/uL (130-400); RBC Distribution Width 14.2 % (11.5-14.5); Red Blood Cell (RBC) Count 4.15 mill/uL (4.20-5.40); White Blood Cell (WBC) Count 6.2 thou/uL (4.8-10.8)
[2019-02-02] MEDS: Ferrous Sulfate 325 MG TAB PO SCH (09:48)
[2019-02-02 11:59] VITALS: BP 138/88; TEMP 98.1
--- NOTE | 2019-02-02 12:39 | PDOC.PP ---
Post Progress Note Post Day #: 2 Subjective: Feeling well. MONTERROSO resolved. Ready to go home. well. Ambulating. PO intake tolerated: yes Flatus: yes Ambulation: yes Vital Signs (12 hours) Temp Pulse Resp BP Pulse Ox 02/02/19 11:58 98.1 F 97 20 138/88 02/02/19 09:39 97.6 F 89 18 147/96 H 98 Weight Weight 185 lb - Physical Examination General: NAD Cardiovascular: no m/r/g, RRR Respiratory: clear to auscultation bilaterally, non-labored breathing Abdominal: + bowel sounds, lochia, no distention, appropriately TTP Result Diagrams: 02/02/19 07:28 01/31/19 12:05 Additional Labs: Post Labs Blood Type O POSITIVE 01/31/19 07:15 Hep Bs Antigen Non-Reactive S/CO (NonReactive) 01/31/19 07:15 Rubella IgG Antibody 1.43 index (Immune >0.99) 01/31/19 07:15 (1) Vaginal delivery Code(s): O80 - ENCOUNTER FOR FULL-TERM UNCOMPLICATED DELIVERY Status: Acute (2) Pre-eclampsia in period Code(s): O14.95 - UNSPECIFIED PRE-ECLAMPSIA, COMPLICATING THE PUERPERIUM Status: Acute (3) Thrombocytopenia affecting Code(s): O99.119 - OTH DIS OF BLD/BLD-FORM ORG/IMMUN MECHNSM COMP PREG,UNSP TRI ; D69.6 - THROMBOCYTOPENIA, UNSPECIFIED Status: Acute - Assessment/Plan Doing better now with BP, will go home with Rx for Toprol for a few weeks F/U in 2 weeks for BP Platelets improving, up to 99,000 today MONTERROSO resolved D/C home
== END 2019-02-02 15:54 | disposition home or self-care (01) | DRG 806 ==
LOC: L&D 06:13 → 3SW 02-02 09:18
PROVIDERS: ADMIT Family Medicine; ATTEND Family Medicine
PROC: 10E0XZZ Delivery of Products of Conception, External Approach (ICD-10-PCS; principal; 2019-01-31)
PROC: 3E033VJ Introduction of Other Hormone into Peripheral Vein, Percutaneous Approach (ICD-10-PCS; 2019-01-31)
DX: O24.425 Gestational diabetes mellitus in childbirth, controlled by oral hypoglycemic drugs (principal); O99.12 Other diseases of the blood and blood-forming organs and certain disorders involving the immune mechanism complicating childbirth; Z37.0 Single live birth; D69.6 Thrombocytopenia, unspecified; Z3A.38 38 weeks gestation of pregnancy; O14.95 Unspecified pre-eclampsia, complicating the puerperium; Z79.82 Long term (current) use of aspirin
CPT/HCPCS: 36415; 36416; 51702; 80053; 81003; 81015; 85025; 85027; 86762; 86780; 86850; 86900; 86901; 87340; J0360; J2590; J3475

== ENCOUNTER 2022-10-11 09:03 | Outpatient (CLI) | payer BC | END 2022-10-11 09:04 | disposition home or self-care (01) | LOC: DTY/OP 09:03 | PROVIDERS: ATTEND Surgery | DX: E66.01 Morbid (severe) obesity due to excess calories (principal) | CPT/HCPCS: 97802 ==

== ENCOUNTER 2023-04-21 12:03 | Day surgery (SDC) | payer BC ==
[2023-04-19 10:28] VITALS: BMI 34.7
[2023-04-21] MEDS ORDERED: Acetaminophen 500 MG TAB ONE (13:27)
[2023-04-21] MEDS ORDERED: Midazolam HCl 2 mg/2 ml Vial ONE (15:26)
[2023-04-21] MEDS ORDERED: fentaNYL PF 100 MCG/2 ML SYRINGE ONE (15:26)
[2023-04-21] MEDS ORDERED: Bupivacaine PF 0.5% 30 ML VIAL ONE (15:45)
[2023-04-21] MEDS ORDERED: Lidocaine 1% (PF) 30 ML VIAL ONE (15:45)
[2023-04-21] MEDS ORDERED: CEFAZOLIN 2 GM VIAL ONE (15:50)
[2023-04-21] MEDS ORDERED: Sodium Chloride 0.9% 100 ML ONE (15:50)
[2023-04-21] MEDS ORDERED: Lidocaine 1% PF 5 ML VIAL ONE (16:02)
[2023-04-21] MEDS ORDERED: Ondansetron PF 4 MG/2 ML Vial ONE (16:02)
[2023-04-21] MEDS ORDERED: PHENYLEPHRINE-NS 100 MCG/ML 10 ML SYRINGE ONE (16:02)
[2023-04-21] MEDS ORDERED: Dexamethasone 20 MG/5 ML VIAL ONE (16:02)
[2023-04-21] MEDS ORDERED: PROPOFOL 200 MG/20 ML VIAL ONE (16:02)
[2023-04-21] MEDS ORDERED: Rocuronium Bromide 10 MG/ML (10ML VIAL) ONE (16:02)
[2023-04-21] MEDS ORDERED: SUGAMMADEX SODIUM 200 MG/2 ML VIAL ONE (16:39)
[2023-04-21] MEDS ORDERED: fentaNYL 50 mcg/mL 1 mL Vial ONE ×3 (17:23→18:39)
[2023-04-21] MEDS ORDERED: Ketorolac Tromethamine 30 MG/ML VIAL ONE (17:51)
[2023-04-21] MEDS ORDERED: HYDROmorphone 0.5 MG/0.5 ML SYRINGE ONE (17:51)
[2023-04-21] MEDS ORDERED: Promethazine HCl 25 MG/ML VIAL ONE (18:06)
[2023-04-21] MEDS ORDERED: HYDROcodone/Acetaminophen 5/325 mg Tablet ONE (19:34)
== END 2023-04-21 19:50 | disposition home or self-care (01) ==
LOC: SDC 12:03
PROVIDERS: ATTEND Orthopaedic Surgery
PROC: 0YPB0YZ Removal of Other Device from Left Lower Extremity, Open Approach (ICD-10-PCS; principal; 2023-04-21)
DX: T84.9XXA Unspecified complication of internal orthopedic prosthetic device, implant and graft, initial encounter (principal); Y79.2 Prosthetic and other implants, materials and accessory orthopedic devices associated with adverse incidents
CPT/HCPCS: C1713; J1100; J1170; J1885; J2001; J2250; J2405; J2550; J2704; J3010; J3490; S0020